=== PATIENT | female | born 1980 | race Hispanic/Latino ===

== ENCOUNTER 2020-04-12 05:44 | Emergency (ER) | payer MEDICARE ==
[2020-04-12] MEDS ORDERED: SODIUM CHLORIDE 0.9% 1000ML 1,000 ML IV ONE (05:45)
[2020-04-12] MEDS ORDERED: ONDANSETRON HCL 4 MG/2 ML VIAL ONE (06:10)
[2020-04-12 06:18] LABS: BASOPHILS % (AUTO) 0.6 % (0.0-5.0); EOSINOPHILS % (AUTO) 1.3 % (0.0-8.0); HEMATOCRIT 37.6 % (36-48); LYMPHOCYTES % (AUTO) 55.1 % (21.0-51.0); MEAN CORPUSCULAR HEMOGLOBIN 31.2 pg (27.0-33.0); MEAN CORPUSCULAR VOLUME 94.7 fL (79-99); MONOCYTES % (AUTO) 7.1 % (3.0-13.0); NEUTROPHILS % (AUTO) 35.5 % (40.0-77.0); PLATELET COUNT (AUTO) 271 K/uL (130-400); RED BLOOD CELL COUNT(AUTO) 3.97 MIL/uL (4.00-5.50); RED CELL DISTRIBUTION WIDTH 13.2 % (11.0-15.5); WHITE BLOOD COUNT (AUTO) 4.7 K/uL (4.8-10.8)
[2020-04-12 06:39] LABS: CARBON DIOXIDE 21 mmol/L (21-32); CHLORIDE 110 mmol/L (101-111); CREATININE 0.6 mg/dL (0.5-1.5); GLOMERULAR FILTR. RATE CALC 120 mL/min (>60); GLUCOSE,RANDOM 106 mg/dL (70-105); POTASSIUM 3.2 mmol/L (3.5-5.1); SODIUM SERUM 144 mmol/L (136-145); UREA NITROGEN, BLOOD 7 mg/dL (7-18)
[2020-04-12 07:40] LABS: ALCOHOL, BLOOD 133 mg/dL (0-10)
[2020-04-12 07:43] LABS: ALBUMIN 3.5 g/dL (3.5-5.0); BILIRUBIN,DIRECT < 0.1 mg/dL (0.0-0.3); BILIRUBIN,TOTAL 0.1 mg/dL (0.2-1.0)
[2020-04-12 07:58] LABS: ALANINE AMINOTRANSFERASE 2 U/L (12-78); ASPARTATE AMINOTRANSFERASE 31 U/L (10-37); CREATINE KINASE, TOTAL 92 U/L (21-232)
[2020-04-12] MEDS ORDERED: POTASSIUM CHLORIDE 20 MEQ ERTAB PO ONE (08:18)
[2020-04-12 08:21] LABS: HCG,QUAL RESULT NEGATIVE (NEGATIVE)
[2020-04-12 08:26] LABS: AMPHET/METH SCREEN,URINE NEGATIVE (NEGATIVE); BARBITURATE SCREEN, URINE NEGATIVE (NEGATIVE); BENZODIAZEPINES SCREEN,URINE NEGATIVE (NEGATIVE); CANNABINOID SCREEN,URINE NEGATIVE (NEGATIVE); COCAINE SCREEN,URINE NEGATIVE (NEGATIVE); OPIATE SCREEN,URINE NEGATIVE (NEGATIVE); PHENCYCLIDINE SCREEN,URINE NEGATIVE (NEGATIVE)
== END 2020-04-12 09:11 | disposition home or self-care (01) ==
LOC: EDH 05:44
DX: F10.929 Alcohol use, unspecified with intoxication, unspecified (principal); E87.6 Hypokalemia; R11.2 Nausea with vomiting, unspecified
CPT/HCPCS: 36415; 80048; 80076; 80305; 81025; 82550; 85025; 96361; 96374; 99283; G0480; J2405; J7030

== ENCOUNTER 2022-05-16 05:30 | Observation (INO) | payer MEDICARE ==
[2022-05-15 15:18] VITALS: BP 142/83
[2022-05-15 15:29] LABS: BASOPHILS % (AUTO) 0.8 % (0.0-5.0); EOSINOPHILS % (AUTO) 1.1 % (0.0-8.0); HEMATOCRIT 38.2 % (36-48); LYMPHOCYTES % (AUTO) 34.3 % (21.0-51.0); MEAN CORPUSCULAR HEMOGLOBIN 28.7 pg (27.0-33.0); MEAN CORPUSCULAR HGB CONC 31.7 g/dL (32.0-36.0); MEAN CORPUSCULAR VOLUME 90.5 fL (79-99); MONOCYTES % (AUTO) 7.8 % (3.0-13.0); NEUTROPHILS % (AUTO) 55.3 % (40.0-77.0); PLATELET COUNT (AUTO) 440 K/uL (130-400); RED BLOOD CELL COUNT(AUTO) 4.22 MIL/uL (4.00-5.50); RED CELL DISTRIBUTION WIDTH 13.2 % (11.0-15.5); WHITE BLOOD COUNT (AUTO) 7.6 K/uL (4.8-10.8)
[2022-05-15 15:30] LABS: APPEARANCE,URINE CLEAR (CLEAR); BILIRUBIN,URINE NEGATIVE (NEGATIVE); COLOR,URINE YELLOW (YELLOW); GLUCOSE, URINE (UA) NEGATIVE (NEGATIVE); KETONES,URINE NEGATIVE (NEGATIVE); LEUKOCYTE ESTERASE ,URINE NEGATIVE (NEGATIVE); NITRATE,URINE NEGATIVE (NEGATIVE); OCCULT BLOOD,URINE LARGE (NEGATIVE); PROTEIN,URINE NEGATIVE (NEGATIVE); UROBILINOGEN,URINE 0.2 mg/dL (0.2-1.0)
[2022-05-15 15:41] LABS: INR 0.94 (0.85-1.15); PROTHROMBIN TIME 10.3 SEC (9.6-11.6)
[2022-05-15 15:42] LABS: BACTERIA,URINE Few /HPF (None Seen); MUCUS,URINE Few LPF (None Seen); SQUAMOUS EPITHELIAL CELL,UR Few /HPF (0-2); WBC,URINE 0-1 /HPF (0-1)
[2022-05-15 15:43] LABS: PARTIAL THROMBOPLASTIN TIME 24.5 SEC (26.3-35.5)
[2022-05-16] VITALS (23 sets, daily range): BP systolic 107–149; BP diastolic 52–97
[~2022-05-16] VITALS: Ht 152.4 cm; Wt 90.5 kg
[2022-05-16] MEDS: CEFAZOLIN SODIUM 1 GM VIAL IVP ONE ×2 (07:32→09:33)
[2022-05-16] MEDS ORDERED: LACTATED RINGERS 1000ML 1,000 ML IV SCH (08:00)
[2022-05-16] MEDS ORDERED: ROCURONIUM 10MG/1ML SYR 10 MG/ML ML ONE (09:05)
[2022-05-16] MEDS ORDERED: ONDANSETRON 4MG INJ ONE (09:05)
[2022-05-16] MEDS ORDERED: MIDAZOLAM HCL 1 MG/ML 2ML VIAL ONE (09:05)
[2022-05-16] MEDS ORDERED: PROPOFOL 10 MG/ML 20ML VIAL IV ONE (09:05)
[2022-05-16] MEDS ORDERED: FENTANYL CITRATE PF 50 MCG/1 ML 5ML AMP IV ONE ×2 (09:06→09:40)
[2022-05-16] MEDS ORDERED: MEPERIDINE-PF 25 MG/ML SYG ONE (09:34)
[2022-05-16] MEDS ORDERED: NEOSTIGMINE 5MG/5ML SYR IV ONE (10:42)
[2022-05-16] MEDS ORDERED: GLYCOPYRROLATE 1 MG/5 ML SYRINGE ONE (10:42)
[2022-05-16] MEDS ORDERED: HYDROMORPHONE 1 MG INJ ONE (11:12)
[2022-05-16] MEDS ORDERED: MEPERIDINE-PF 75 MG/ML SYG ONE (12:57)
[2022-05-16] MEDS ORDERED: PROMETHAZINE HCL 25 MG/ML 1ML AMPULE IM PRN (13:00)
[2022-05-16] MEDS ORDERED: DOCUSATE SODIUM 100 MG CAP PO PRN (13:00)
[2022-05-16] MEDS ORDERED: SIMETHICONE 80 MG TAB.CHEW PO PRN (13:00)
[2022-05-16] MEDS ORDERED: IBUPROFEN 600 MG TABLET PO PRN (13:00)
[2022-05-16] MEDS ORDERED: ACETAMINOPHEN WITH CODEINE 1 TAB TAB PO PRN (13:00)
[2022-05-16] MEDS ORDERED: ONDANSETRON 4MG INJ IVP PRN (13:00)
[2022-05-16] MEDS ORDERED: BISACODYL 10 MG SUPP.RECT RC PRN (13:00)
[2022-05-16] MEDS: PROMETHAZINE HCL 25 MG/ML 1ML AMPULE IM PRN ×3 (13:08→22:10)
[2022-05-16] MEDS: MEPERIDINE-PF 75 MG/ML SYG IM PRN ×3 (13:09→22:11)
[2022-05-16] MEDS: DEXTROSE 5 %-0.45 % NACL 1,000 ML IV PRN ×2 (13:12→20:05)
[2022-05-17 03:00] VITALS: BP 106/71
[2022-05-17] MEDS: PROMETHAZINE HCL 25 MG/ML 1ML AMPULE IM PRN (04:00)
[2022-05-17] MEDS: DEXTROSE 5 %-0.45 % NACL 1,000 ML IV PRN (04:00)
[2022-05-17] MEDS: MEPERIDINE-PF 75 MG/ML SYG IM PRN (04:01)
[2022-05-17 05:40] LABS: HEMATOCRIT 31.2 % (36-48); MEAN CORPUSCULAR HEMOGLOBIN 28.7 pg (27.0-33.0); MEAN CORPUSCULAR HGB CONC 32.1 g/dL (32.0-36.0); MEAN CORPUSCULAR VOLUME 89.7 fL (79-99); RED BLOOD CELL COUNT(AUTO) 3.48 MIL/uL (4.00-5.50); RED CELL DISTRIBUTION WIDTH 13.1 % (11.0-15.5); WHITE BLOOD COUNT (AUTO) 10.2 K/uL (4.8-10.8)
[2022-05-17] MEDS ORDERED: IBUPROFEN 800 MG TAB PO PRN (06:00)
[2022-05-17] MEDS ORDERED: SIMETHICONE 80 MG TAB.CHEW PO PRN (06:00)
[2022-05-17] MEDS ORDERED: HYDROCODONE/ACETAMINOPHEN 5/325 MG TAB PO PRN (06:00)
[2022-05-17] MEDS ORDERED: BISACODYL 10 MG SUPP.RECT RC PRN (06:00)
[2022-05-17] MEDS ORDERED: ACETAMINOPHEN WITH CODEINE 1 TAB TAB PO PRN (06:00)
[2022-05-17] MEDS ORDERED: DOCUSATE SODIUM 100 MG CAP PO PRN (06:00)
[2022-05-17 07:30] VITALS: BP 126/78
[2022-05-17] MEDS ORDERED: ACET-2079 PO (10:13)
[2022-05-17] MEDS ORDERED: FERR-72 PO (10:14)
[2022-05-17 12:00] VITALS: BP 111/78
[2022-05-17] MEDS ORDERED: IBUPROFEN 800 MG TAB PO SCH (13:00)
== END 2022-05-17 13:15 | disposition home or self-care (01) ==
LOC: DAH 05:30 → DAHIP 05:31 → WSH 11:40
PROVIDERS: ADMIT Obstetrics & Gynecology; ATTEND Obstetrics & Gynecology
DX: N92.1 Excessive and frequent menstruation with irregular cycle (principal); Z20.822 Contact with and (suspected) exposure to COVID-19; N85.2 Hypertrophy of uterus; N83.291 Other ovarian cyst, right side; K46.9 Unspecified abdominal hernia without obstruction or gangrene; N83.02 Follicular cyst of left ovary; Z79.899 Other long term (current) drug therapy; Z98.890 Other specified postprocedural states
CPT/HCPCS: 36415 ×2; 58263; 81001; 84703; 85025; 85027; 85610; 85730; 86850; 86900; 86901; 87635; 96372 ×2; A4215; A4221; A4222; A4223; A4351; A4600 ×2; A4606; A4663; A6260; C9803; G0378 ×28; G0379; J0690; J1170; J2175 ×5; J2250; J2405; J2550 ×3; J2704; J2710; J3010 ×2; J3490; J7120 ×2